=== PATIENT | female | born 1945 | race Caucasian/White ===

== ENCOUNTER 2017-04-16 22:18 | Emergency (ER) | payer OTHER, MEDICARE ==
--- NOTE | 2017-04-16 22:27 | PDOC ---
History of Present Illness - General Chief Complaint: Injury Stated Complaint: RT ANKLE INJURY Time Seen by Provider: 04/16/17 22:20 History Source: Patient Exam Limitations: No Limitations - History of Present Illness Initial Comments: 04/18/17 06:13 twisted ankle on rug unable to bear weight Timing/Duration: 1-3 hours Severity: moderate Modifying Factors: improves with: medication Associated Symptoms: reports: denies symptoms Past History - Past Medical History Allergies/Adverse Reactions: Allergies Allergy/AdvReac Type Severity Reaction Status Date / Time gabapentin Allergy Verified 04/16/17 22:31 Sulfa (Sulfonamide Allergy Verified 04/16/17 22:31 Antibiotics) Home Medications: Ambulatory Orders Ibuprofen [Advil -] 600 mg PO BID 04/16/17 Pantoprazole Sodium 40 mg PO DAILY 04/16/17 Ranitidine HCl [Zantac] 150 mg PO DAILY 04/16/17 Tramadol HCl 50 mg PO HS PRN 04/16/17 Tramadol HCl [Ultram] 50 mg PO BID PRN #10 tablet MDD 100mg 04/17/17 GI Disorders: Yes Review of Systems - Review of Systems Able to Perform ROS?: Yes All Other Systems: Reviewed and Negative *Physical Exam - Physical Exam General Appearance: Yes: Nourished, Appropriately Dressed HEENT: positive: Normal Voice Neck: negative: Tender Respiratory/Chest: positive: Lungs Clear Cardiovascular: positive: Regular Rhythm Gastrointestinal/Abdominal: negative: Tender Musculoskeletal: positive: Other (tender along 5th mt; otherwise no imelda tenderness) Extremity: positive: Normal Capillary Refill Integumentary: positive: Normal Color Neurologic: positive: Alert Medical Decision Making - Medical Decision Making 04/18/17 06:16 plain films: 5th mt fx, as read by me procedure: posterior splint applied and molded by me, with intact n/v exm a/p fifth mt fracture immobilize analgesia ortho fu *DC/Admit/Observation/Transfer Diagnosis at time of Disposition: Metatarsal fracture Qualifiers: Encounter type: initial encounter Metatarsal bone: fifth Fracture type: closed Fracture alignment: displaced Laterality: right Qualified Code(s): S92.351A - Displaced fracture of fifth metatarsal bone, right foot, initial encounter for closed fracture - Discharge Dispostion Disposition: HOME Condition at time of disposition: Stable - Prescriptions Prescriptions: Tramadol HCl [Ultram] 50 mg PO BID PRN #10 tablet MDD 100mg PRN Reason: foot pain - Referrals Referrals: Ulises Harvey MD [Staff Physician] - Call tomorrow - Patient Instructions Printed Discharge Instructions: DI for Foot Fracture - Post Discharge Activity
[2017-04-16 22:37] VITALS: BP 160/79; PULSE 58; TEMP 98.3; BMI 23.1
== END 2017-04-17 01:04 | disposition home or self-care (01) ==
LOC: FER 22:18
PROC: 2W3QX1Z Immobilization of Right Lower Leg using Splint (ICD-10-PCS; principal; 2017-04-16)
DX: S92.351A Displaced fracture of fifth metatarsal bone, right foot, initial encounter for closed fracture (principal); X58.XXXA Exposure to other specified factors, initial encounter; Y93.89 Activity, other specified; Y92.9 Unspecified place or not applicable
CPT/HCPCS: 73630-TC-RT; 99281-25

== ENCOUNTER 2017-10-24 19:40 | Emergency (ER) | payer OTHER, MEDICARE ==
--- NOTE | 2017-10-24 19:58 | PDOC ---
History of Present Illness - General History Source: Patient Exam Limitations: No Limitations - History of Present Illness Initial Comments: 10/24/17 21:04 The patient is a 72 year old female, with a significant PMH of chronic back pain , who presents to the emergency department with left hand pain today. The patient states she went to the [facility] today with her when she tripped and fell at poolside while trying to move a beach chair. The patient reports constant non radiating pain to the left hand, no relief with ice. 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 The patient denies chest pain, shortness of breath, headache and dizziness. Denies fever, chills, nausea, vomit, diarrhea and constipation. Denies dysuria, frequency, urgency and hematuria. PAST SURGICAL HISTORY: no significant history FAMILY HISTORY: no pertinent history SOCIAL HISTORY: Pt lives with family and is employed. MEDICATIONS: reviewed ALLERGIES: As per nursing notes Adult ROS General: No fevers or chills, no weakness, no weight loss HEENT: No change in vision. No sore throat,. No ear pain CardioVascular: No chest pain or shortness of breath Respiratory:No cough, or wheezing. Gastrointestinal: no nausea, vomiting, diarrhea or constipation, No rectal bleeding Genitourinary: No dysuria, hematuria, or frequency Musculoskeletal: +Left hand pain Neurologic: No headache, vertigo, dizziness or loss of consciousness Psychiatric: nor depression Skin: No rashes or easy bruising Endocrine: no increased thirst or abnormal weight change Allergic: no skin or latex allergy All other systems reviewed and normal Basic PE GENERAL: The patient is awake, alert, and fully oriented, in no acute distress. HEAD: Normal with no signs of trauma. EYES: Pupils equal, round and reactive to light, extraocular movements intact, sclera anicteric, conjunctiva clear. EXTREMITIES: +Left hand tenderness, ecchymosis, swelling to the shaft of the 5th metacarpal. No obvious deformities. Neurovascular intact. No tenderness to wrist, bone or fingers. NEUROLOGICAL: Normal speech. PSYCH: Normal mood, normal affect. SKIN: Warm, Dry, normal turgor, no rashes or lesions noted <Corey Guadalupe - Last Filed: 10/24/17 21:04> - General History Source: Patient Exam Limitations: No Limitations - History of Present Illness Initial Comments: 10/24/17 21:16 A portion of this note was documented by scribe services under my direction. I have reviewed the details of the note, within reason, and agree with the documentation. The case summary and management plan written by me. Procedure note OCL ulnar gutter splint was applied neurovascular exam post splint application was normal X-ray shows nondisplaced fracture fifth meta-carpal Assessment and plan: This is a 72-year-old female who fractured her fifth metatarsal when she fell earlier today patient said she did not hit her head and denies any other injuries. X-ray showed a nondisplaced fracture of the fifth metacarpal. Patient was placed in an ulnar gutter splint and does have a hand specialist that she can follow-up with. Patient will contact her hand specialist for follow-up tomorrow morning. <Nela Lancaster I - Last Filed: 10/24/17 21:19> - General Chief Complaint: Injury Stated Complaint: LEFT HAND PAIN Time Seen by Provider: 10/24/17 19:56 Past History <Corey Guadalupe - Last Filed: 10/24/17 21:04> - Past Medical History COPD: No GI Disorders: Yes Other medical history: CHRONIC BACK PAIN - Suicide/Smoking/Psychosocial Hx Smoking History: Never smoked Have you smoked in the past 12 months: No Information on smoking cessation initiated: No Hx Alcohol Use: No <Nela Lancaster I - Last Filed: 10/24/17 21:19> - Past Medical History Allergies/Adverse Reactions: Allergies Allergy/AdvReac Type Severity Reaction Status Date / Time gabapentin Allergy Verified 10/24/17 19:41 Sulfa (Sulfonamide Allergy Verified 10/24/17 19:41 Antibiotics) Home Medications: Ambulatory Orders Tramadol HCl 50 mg PO ASDIR PRN 04/16/17 *Physical Exam - Vital Signs Last Vital Signs Temp Pulse Resp BP Pulse Ox 98.1 F 61 18 140/72 100 10/24/17 19:40 10/24/17 19:40 10/24/17 19:40 10/24/17 19:40 10/24/17 19:40 <Corey Guadalupe - Last Filed: 10/24/17 21:04> - Vital Signs Last Vital Signs Temp Pulse Resp BP Pulse Ox 98.1 F 61 18 140/72 100 10/24/17 19:40 10/24/17 19:40 10/24/17 19:40 10/24/17 19:40 10/24/17 19:40 <Nela Lancaster I - Last Filed: 10/24/17 21:19> *DC/Admit/Observation/Transfer - Attestations Scribe Attestion: 10/24/17 21:05 Documentation prepared by Corey Guadalupe, acting as medical claims examiner for Nela Lancaster MD. <Corey Guadalupe - Last Filed: 10/24/17 21:04> - Discharge Dispostion Decision to Admit order: No <Nela Lancaster I - Last Filed: 10/24/17 21:19> Diagnosis at time of Disposition: Fracture of metacarpal of left hand, closed - Discharge Dispostion Disposition: HOME Condition at time of disposition: Stable - Referrals Referrals: Hong Pereyra [Primary Care Provider] - - Patient Instructions Additional Instructions: Tylenol or Motrin as needed for the pain Leave the splint on until you see the orthopedist. Follow-up with your orthopedist tomorrow morning. Return to the emergency department immediately with ANY new, persistent or worsening symptoms. Continue any medications as previously prescribed by your physician. You should follow up with your primary doctor as soon as possible regarding today's emergency department visit. . Please make sure your doctor reviews the results of your emergency evaluation. Thank you for coming to the Emergency Department today for your care. It was a pleasure to see you today. Please note that your evaluation is INCOMPLETE until you follow-up with your doctor. - Post Discharge Activity
[2017-10-24 20:09] VITALS: BP 140/72; PULSE 61; TEMP 98.1; BMI 25.7
== END 2017-10-24 21:06 | disposition home or self-care (01) ==
LOC: FER 19:40
PROC: 2W3DX1Z Immobilization of Left Lower Arm using Splint (ICD-10-PCS; principal; 2017-10-24)
DX: S62.307A Unspecified fracture of fifth metacarpal bone, left hand, initial encounter for closed fracture (principal); W18.39XA Other fall on same level, initial encounter; Y93.89 Activity, other specified; Y92.34 Swimming pool (public) as the place of occurrence of the external cause; G89.29 Other chronic pain
CPT/HCPCS: 73130-TC-LR-FY; 99282-25